=== PATIENT | female | born 1970 | race Hispanic/Latino ===

== ENCOUNTER 2017-05-26 19:32 | Emergency (ER) | payer OTHER ==
[2017-05-26 19:43] VITALS: BP 150/91; PULSE 76; RESP 18; TEMP 97.9; O2SAT 99
[2017-05-26] MEDS ORDERED: Naproxen 500 MG TAB PO ONE (19:50)
--- NOTE | 2017-05-26 20:55 | ED PDOC ---
Lower Extremity Pain/Injury Time Seen by Provider: 05/26/17 19:47 Chief Complaint (Nursing): Lower Extremity Problem/Injury Chief Complaint (Provider): Right ankle pain History Per: Patient History/Exam Limitations: no limitations Current Symptoms Are (Timing): Still Present Severity: Moderate Additional History Per: Patient Additional Complaint(s): The patient is a 47yo female, who presents to the ED for evaluation of right ankle pain s/p twisting it. Patient reports she missed a step and twisted her ankle. She denies any other injuries. - Ankle/Foot Description Of Injury: Twisted Past Medical History Reviewed: Historical Data, Nursing Documentation, Vital Signs Vital Signs: Last Vital Signs Temp 97.9 F 05/26/17 19:41 Pulse 76 05/26/17 19:41 Resp 18 05/26/17 19:41 BP 150/91 H 05/26/17 19:41 Pulse Ox 99 05/26/17 19:41 - Medical History PMH: No Chronic Diseases - Surgical History Surgical History: No Surg Hx - Family History Family History: States: No Known Family Hx - Home Medications Home Medications: Ambulatory Orders Medication Instructions Recorded Acetaminophen with Codeine 1 - 2 tab PO Q6 PRN #20 tablet 05/26/17 [Tylenol with Codeine #3 Tablet] - Allergies Allergies/Adverse Reactions: Allergies Allergy/AdvReac Type Severity Reaction Status Date / Time Penicillins Allergy RASH Verified 05/26/17 19:41 Review of Systems ROS Statement: Except As Marked, All Systems Reviewed And Found Negative Musculoskeletal: Positive for: Leg Pain (right ankle injury) Physical Exam - Reviewed Nursing Documentation Reviewed: Yes Vital Signs Reviewed: Yes - Physical Exam Appears: Positive for: Non-toxic, No Acute Distress Head Exam: Positive for: ATRAUMATIC, NORMAL INSPECTION, NORMOCEPHALIC Skin: Positive for: Normal Color, Warm, DRY Eye Exam: Positive for: Normal appearance, EOMI, PERRL Neck: Positive for: Normal, Supple Cardiovascular/Chest: Positive for: Regular Rate, Rhythm Respiratory: Negative for: Accessory Muscle Use, Respiratory Distress Pulses-Dorsalis Pedis (L): 2+ Pulses-Dorsalis Pedis (R): 2+ Extremity: Positive for: Normal ROM, Tenderness (mild tenderness and swellig above right lateral malleolus and at level of malleolus. No foot or knee tenderness or swelling noted.). Negative for: Deformity Neurologic/Psych: Positive for: Alert, Oriented. Negative for: Motor/Sensory Deficits - ECG O2 Sat by Pulse Oximetry: 99 (RA) Pulse Ox Interpretation: Normal - Progress ED Course And Treament: Ankle x-ray: minimally displaced spiral distal fibula fx Tib/Fib x-ray: minimally displaced spiral distal fibula fx Pt.evaluaed by Dr. Amezquita, podiatry resident, who discussed case with Dr. Correa and arrangements made for outpt f/u tomorrow in his office. Pt. will likely need ORIF on Friday. Dr. Amezuqita immobilized leg with splint. RN provided crutches and crutch walking instructions. Pt. searched on [place] [employer] which show no previous narcotic prescriptions with in the past year. Pt. will be prescribed Tylenol #3. Pt. informed of risks of dependence with medication. Medical Decision Making Medical Decision Making: Time: 1949 Impression: Right ankle pain Plan: -- Naproxen 500 mg PO -- XR Right ankle Reassess Scribe Attestation: Documented by Georgiana Maradiaga acting as a scribe for HERNÁN Holland Provider Attestation: All medical record entries made by the Scribe were at my direction and personally dictated by me. I have reviewed the chart and agree that the record accurately reflects my personal performance of the history, physical exam, medical decision making, and the department course for this patient. I have also personally directed, reviewed, and agree with the discharge instructions and disposition. Disposition - Clinical Impression Clinical Impression: Ankle fracture - Patient ED Disposition Is Patient to be Admitted: No - Disposition Referrals: Rip Correa DPM [Staff Provider] - Disposition: Routine/Home Disposition Time: 22:27 Condition: STABLE Additional Instructions: FOLLOW UP WITH DR. CORREA TOMORROW WITHOUT FAIL Prescriptions: Acetaminophen with Codeine [Tylenol with Codeine #3 Tablet] 1 - 2 tab PO Q6 PRN #20 tablet PRN Reason: pain Instructions: Ankle Fracture (ED), Crutch Instructions (ED), Splint Care (ED) Forms: [employer] (Arabic), [facility] ED School/Work Excuse Print Language: KINYARWANDA
--- NOTE | 2017-05-26 21:27 | CP.PCM.CON ---
History of Present Illness - History of Present Illness History of Present Illness: ED consult for Dr. Soriano 47 y.o female with PMH of acid reflux was consulted and seen in ED Holding for right ankle pain. Patient states that at 6pm today [place], she missed a step and twisted her ankle. She reports most pain at right lateral ankle. She reports some pain at the dorsum of the foot as well and entire ankle. She rates her pain 8/10. Worse with movements but reports minimal pain with sitting in chair. She denies n/v/sob/cp/ chills of f. PMH: acid reflux PSH: left rotatory cuff repair without complications SH: reports socially drinking, denies smoking or elicited drug use Allergies: penicillins Meds: takes medication for acid reflux, can't recall name FH: father DM Meds Home Medications: Home Medication List Medication Instructions Recorded Confirmed Type Acetaminophen with Codeine 1 - 2 tab PO Q6 PRN #20 tablet 05/26/17 Rx [Tylenol with Codeine #3 Tablet] Allergies/Adverse Reactions: Allergies Allergy/AdvReac Type Severity Reaction Status Date / Time Penicillins Allergy RASH Verified 05/26/17 19:41 Physical Exam - Constitutional Appears: Well, Non-toxic, No Acute Distress - Extremities Exam Additional comments: Vasc: DP and PT 2/4 bilaterally, LINOLEUM FLOOR LAYER <3 seconds to digits, temperature gradient WNL proximal to distal, nonpitting edema noted to the right ankle and dorsum of the foot Ortho: severe pain with palpation to the right lateral fibular, moderate pain with palpation to the right entire ankle, mild pain elicited with palpation of the right dorsum of the midfoot, patient able to wiggle toes Neuro: gross sensation intact bilaterally Derm: skin color WNL with no ecchymosis noted to entire lower extremity, no open lesions noted - Neurological Exam Neurological exam: Alert, Oriented x3 - Psychiatric Exam Psychiatric exam: Normal Affect, Normal Mood Results - Vital Signs Recent Vital Signs: Last Vital Signs Temp 97.9 F 05/26/17 19:41 Pulse 76 05/26/17 19:41 Resp 18 05/26/17 19:41 BP 150/91 H 05/26/17 19:41 Pulse Ox 99 05/26/17 21:00 Assessment & Plan - Assessment and Plan (Free Text) Assessment: 47 y.o female with PMH of acid reflux presents with right displaced, angulated spiral fibular fracture of right LE secondary to trauma. Plan: -Patient seen and evaluated in Holding -Chart and vitals reviewed- WNL -Discussed plan in detail with attending Dr. Soriano/Dr. Correa -X-rays reviewed by me- displaced, angulated spiral fibular fracture of right LLE noted -Modified Rojas and posterior splint applied. Patient to NWB in crutches. Instructed on RICE protocol -Discussed plan with patient: will need surgery to reduce and stabilize fracture -Will be discharged with Tylenol with codeine per ED to manage pain -Will f/u in office with Dr. Correa tomorrow, will discuss surgery in detail in office - Thank you for the consult
--- NOTE | 2017-05-27 09:19 | RAD ---
PROCEDURE: Right Ankle Radiographs. HISTORY: trauma COMPARISON: None FINDINGS: BONES: There is nondisplaced, oblique fracture of the distal fibula through the upper portion of the lateral malleolus of the right ankle with mild narrowing of the lateral mortise appreciated. The medial and superior portion of the mortise is normal. No dislocation. JOINTS: No dislocation is appreciated or suspicious cortical abnormality. Ankle mortise is mildly narrowed at the lateral portion. SOFT TISSUES: Soft tissue edema is seen related to the lateral ankle and distal leg soft tissues. OTHER FINDINGS: None. IMPRESSION: Nondisplaced, oblique Distal fibula and upper lateral malleolar fracture without dislocation. Mild narrowing of the lateral mortise is identified.
--- NOTE | 2017-05-27 09:21 | RAD ---
PROCEDURE: Radiographs of the right tibia and fibula. HISTORY: trauma COMPARISON: Right ankle radiographs 05/26/2017. TECHNIQUE: Frontal and lateral views obtained. FINDINGS: BONES: Spiral fracture of the distal right fibula is appreciated extending into the upper portion lateral malleolus, nondisplaced. JOINT SPACES: Unremarkable. OTHER FINDINGS: None. IMPRESSION: Nondisplaced distal right fibular fracture extending into the upper portion right lateral malleolus.
== END 2017-05-26 22:53 | disposition home or self-care (01) ==
LOC: H.ER 19:32
DX: S82.401A Unspecified fracture of shaft of right fibula, initial encounter for closed fracture (principal); X50.9XXA Other and unspecified overexertion or strenuous movements or postures, initial encounter; Y92.89 Other specified places as the place of occurrence of the external cause